=== PATIENT | male | born 1980 | race Caucasian/White ===

== ENCOUNTER 2019-10-30 06:51 | Emergency (ER) | payer SELFPAY ==
[~2019-10-30] VITALS: Ht 170.2 cm; Wt 69.0 kg
[2019-10-30 07:00] VITALS: BP 128/75
[2019-10-30] MEDS ORDERED: ORPH100T PO (07:12)
--- NOTE | 2019-10-30 07:13 | PHYS DOC ---
Past Medical History Past Medical History: Kidney Stone Past Surgical History: No Surgical History Smoking Status: Current Every Day Smoker Alcohol Use: Occasionally Drug Use: None General Adult EDM: Chief Complaint: RIB PAIN HPI: HPI: Patient is a 39 year old male presents with report of left mid thoracic back pain upon waking this morning. Reports worse with movement including bending and twisting. Reports sensation that his muscle is spasming. Denies loss of bowel or bladder. Denies dysuria or hematuria. Denies nausea or vomiting. Patient reports has a history of kidney stones however this feels very different than prior episodes of kidney stones. Denies trauma. Review of Systems: Review of Systems: Constitutional: Denies fever or chills Eyes: Denies redness or eye pain HENT: Denies nasal congestion or sore throat Respiratory: Denies cough or shortness of breath Cardiovascular: Denies chest pain or palpitations GI: Denies abdominal pain, nausea, or vomiting : Denies dysuria or hematuria Musculoskeletal: Reports left thoracic back pain; denies joint pain Integument: Denies rash or skin lesions Neurologic: Denies headache, focal weakness or sensory changes Complete systems were reviewed and found to be within normal limits, except as documented in this note. Allergies: Allergies: Allergies Coded Allergies Type Severity Reaction Last Updated Verified Penicillins Allergy Unknown 07/05/14 No Physical Exam: PE: Constitutional: Well developed, well nourished, no acute distress, non-toxic appearance HENT: Normocephalic, atraumatic Eyes: Conjunctiva normal, no discharge Neck: Normal range of motion, supple Lungs & Thorax: No respiratory distress, equal chest rise and fall Skin: Warm, dry, no erythema, no rash Back: No midline tenderness, left mid thoracic paraspinal tenderness, no CVA tenderness Extremities: No tenderness, ROM intact, no edema Neurologic: Alert and oriented X 3, no focal deficits noted Psychologic: Affect normal, judgment normal EKG: EKG: [] Radiology/Procedures: Radiology/Procedures: [] Course & Med Decision Making: Course & Med Decision Making Patient presents with HPI and physical exam consistent for mid thoracic paraspinal back pain. No history of trauma. No rash noted. Symptomatic tr eatment provided with ice pack. Prescription for Norflex provided. Work note given. Patient stable for discharge with outpatient follow-up with PCP/pain management. Pain management referral provided. Discussed findings and plan with patient, who acknowledges understanding and agreement. Kurt Disclaimer: Kurt Disclaimer: This electronic medical record was generated, in whole or in part, using a voice recognition dictation system. Departure Departure Impression: Primary Impression: Thoracic back pain Qualified Codes: M54.6 - Pain in thoracic spine Disposition: HOME, SELF-CARE Condition: STABLE Referrals: NO PCP (PCP) CLINT SCHWARZ MD Patient Instructions: Back Pain, Adult, [id number] Additional Instructions: Take over the counter Tylenol and/or Ibuprofen for pain or discomfort. ICE area 20 min on then leave off for next 20 mins. Repeat several times daily as needed for next few days. Scripts Orphenadrine Citrate (ORPHENADRINE CITRATE) 100 Mg Tablet.er 100 MG PO BID PRN for MUSCLE PAIN, #14 TAB Prov: KOFI MUELLER DO 10/30/19 Justicifation of Admission Dx: Justifications for Admission: Justification of Admission Dx: N/A KOFI MUELLER DO Oct 30, 2019 07:13
== END 2019-10-30 07:22 | disposition home or self-care (01) ==
LOC: ER 06:51
DX: M54.6 Pain in thoracic spine (principal); R20.0 Anesthesia of skin; F17.200 Nicotine dependence, unspecified, uncomplicated; Z88.0 Allergy status to penicillin; Z87.442 Personal history of urinary calculi
CPT/HCPCS: 99283